=== PATIENT | male | born 1995 | race Caucasian/White ===

== ENCOUNTER 2022-06-09 09:25 | Emergency (ER) | payer OTHER ==
[~2022-06-09] VITALS: Ht 165.1 cm; Wt 50.8 kg
--- NOTE | 2022-06-09 10:00 | NUR ---
DR. BECKMAN AT FOR EVAL.
[2022-06-09 10:22] LABS: BASOPHILS % (AUTO) 0.3 % (0.0-2.0); EOSINOPHILS % (AUTO) 0.5 % (0.0-6.0); HEMATOCRIT 40 % (39-51); HEMOGLOBIN 13.6 g/dL (13.5-17.5); LYMPHOCYTES # (AUTO) 1.6 K/uL (0.8-4.8); LYMPHOCYTES % (AUTO) 15.8 % (20.0-44.0); MEAN CORPUSCULAR HGB CONC 34 g/dl (31.0-36.0); MEAN CORPUSCULAR VOLUME 93 fL (80-96); MONOCYTES # (AUTO) 0.6 K/uL (0.1-1.30); MONOCYTES % (AUTO) 6.4 % (2.0-12.0); NEUTROPHILS # (AUTO) 7.7 K/uL (1.8-8.9); PLATELET COUNT (AUTO) 323 K/uL (150-450); RED BLOOD CELL COUNT(AUTO) 4.32 MIL/uL (4.5-6.0)
--- NOTE | 2022-06-09 10:25 | NUR ---
R thumb pain and swelling x 2 days, possible "spider bite". PT AAOX4, VSS. RR EVEN & UNLABORED. DENIES ANY OTHER DISCOMFORT, NAD NOTED AT THIS TIME. WILL CONT TO MONITOR.
[2022-06-09 10:27] LABS: CALCIUM, SERUM 9.3 mg/dL (8.5-10.1); CARBON DIOXIDE 29 mmol/L (21-32); CHLORIDE 100 mmol/L (98-107); GLUCOSE 95 mg/dL (74-106); POTASSIUM 3.7 mmol/L (3.5-5.1); SODIUM SERUM 138 mmol/L (136-145); UREA NITROGEN, BLOOD 25 mg/dL (7-18)
[2022-06-09] MEDS ORDERED: VANCOMYCIN HCL 1.25 GM in IV D5W 260 ML IV ONE (10:30)
[2022-06-09] MEDS ORDERED: VANCOMYCIN HCL 1 GM in IV D5W 260 ML IV ONE (10:30)
[2022-06-09] MEDS ORDERED: PIPERACILLIN /TAZOBACTAM 2.25 G in IV D5W 50 ML IV ONE (10:30)
--- NOTE | 2022-06-09 10:35 | NUR ---
STARTED IV ZOSYN PER ERMD ORDER, PT CELENA WELL.
[2022-06-09] MEDS ORDERED: CLIN300C12 PO (10:40)
[2022-06-09] MEDS ORDERED: SULF1TAB48 PO (10:40)
--- NOTE | 2022-06-09 12:05 | NUR ---
PT REFUSED TO BE ADMITTED TO THE HOSPITAL. PT SIGNED AMA FORM, REFUSED TO FINISH IV ANTIOBITC, ERMD AWARE. Patient discharged to home in stable condition. Written and verbal after care instructions given. Patient verbalizes understanding of instruction. IV removed. Catheter intact and site benign. Pressure and 4x4 applied to site. No bleeding noted.
[2022-06-09 12:06] VITALS: BP 121/78
[2022-06-09 19:13] LABS: C-REACTIVE PROTEIN < 0.2 mg/dL (0.0-0.9)
== END 2022-06-09 12:07 | disposition left against medical advice (07) ==
LOC: ER 09:35
DX: M65.841 Other synovitis and tenosynovitis, right hand (principal); Z79.899 Other long term (current) drug therapy
CPT/HCPCS: 99284; 96365; 96367; 96366; 73130; 85025; 80048; 85652; 36415; 86140; J2543; J7060